=== PATIENT | female | born 1940 | race Caucasian/White ===

== ENCOUNTER 2022-02-15 11:56 | Outpatient (CLI) | payer MEDICARE, OTHER ==
[2022-02-15 14:40] LABS: Hemoglobin 12.2 g/dL (12.0-15.5); Mean Corpuscular HGB CONC 32.9 g/dL (32.0-36.0); Mean Corpuscular Volume 91.2 fl (81.6-98.3); Mean Platelet Volume 11.9 fl (7.4-10.4); Platelet Count 135 10x3/uL (150-450); RBC Distribution Width 13.6 % (11.5-14.5); Red Blood Cell (RBC) Count 4.07 10x6/uL (3.90-5.03); White Blood Cell (WBC) Count 4.9 10x3/uL (3.5-10.5)
[2022-02-15 14:58] LABS: Anion Gap 14 mmol/L (10-20); BUN (Urea Nitrogen) 23 mg/dL (9.8-20.1); Calc. Creatinine Clearance 0 mL/min (70-130); Calcium 9.9 mg/dL (7.8-10.44); Carbon Dioxide 27 mmol/L (23-31); Chloride 106 mmol/L (98-107); Estimated GFR 69; Glucose 88 mg/dL (83-110); Potassium 4.8 mmol/L (3.5-5.1); Sodium 142 mmol/L (136-145)
== END 2022-02-15 11:57 | disposition home or self-care (01) ==
LOC: LABBT 11:56
PROVIDERS: ATTEND Thoracic Surgery (Cardiothoracic Vascular Surgery)
DX: Z01.812 Encounter for preprocedural laboratory examination (principal)
CPT/HCPCS: 80048; 85027

== ENCOUNTER 2022-02-17 06:41 | Inpatient (IN) | payer MEDICARE ==
[2022-02-17 07:53] LABS: SARS-CoV-2 NAA Rapid Test Not Detected (NotDetected)
[2022-02-17] MEDS ORDERED: Clindamycin/D5W 900 mg/50 ml Premix Bag ONE (08:59)
[2022-02-17] MEDS ORDERED: fentaNYL Citrate/PF 100 MCG/2 ML SYRINGE ONE (09:00)
[2022-02-17] MEDS ORDERED: Nitroglycerin 50 MG/250 ML BOT 0 ML ONE (09:01)
[2022-02-17] MEDS ORDERED: SUGAMMADEX SODIUM 200 MG/2 ML VIAL ONE (09:01)
[2022-02-17] MEDS ORDERED: PHENYLEPHRINE-NS 100 MCG/ML 10 ML SYRINGE ONE (09:11)
[2022-02-17] MEDS ORDERED: Phenylephrine 10 MG/ML VIAL ONE (09:12)
[2022-02-17] MEDS ORDERED: Protamine Sulfate 50 MG/5 ML VIAL ONE (09:40)
[2022-02-17] MEDS ORDERED: Heparin 5,000 UNITS/ML VIAL ONE (09:40)
[2022-02-17] MEDS ORDERED: EPINEPHrine 1 MG/ML AMP ONE (09:41)
[2022-02-17] MEDS ORDERED: Bupivacaine PF 0.5% 30 ML VIAL ONE (09:41)
[2022-02-17] MEDS ORDERED: Sodium Chloride 0.9% 100 ML ONE (10:27)
[2022-02-17] MEDS ORDERED: CEFAZOLIN 2 GM VIAL ONE (10:27)
[2022-02-17] MEDS ORDERED: Glycopyrrolate 0.2 MG/ML 5 ML SYRINGE ONE (10:36)
[2022-02-17] MEDS ORDERED: PROPOFOL 200 MG/20 ML VIAL ONE (10:36)
[2022-02-17] MEDS ORDERED: Rocuronium Bromide 10 MG/ML (10ML VIAL) ONE (10:36)
[2022-02-17] MEDS ORDERED: Ondansetron PF 4 MG/2 ML Vial ONE (10:36)
[2022-02-17] MEDS ORDERED: Ondansetron HCl/PF 4 MG/2 ML Vial IVP PRN (11:57)
[2022-02-17] MEDS ORDERED: Promethazine HCl 25 MG/ML VIAL IVPB PRN (11:57)
[2022-02-17] MEDS ORDERED: Promethazine HCl 25 MG/ML VIAL IM PRN (11:57)
[2022-02-17] MEDS ORDERED: Acetaminophen 325 MG TAB PO PRN (12:10)
[2022-02-17] MEDS ORDERED: hydrALAZINE 20 MG/ML VIAL SLOW IVP PRN (12:10)
[2022-02-17] MEDS ORDERED: traMADol HCl 50 MG TAB PO PRN (12:10)
[2022-02-17] MEDS ORDERED: Ondansetron PF 4 MG/2 ML Vial IVP PRN (12:10)
[2022-02-17] MEDS ORDERED: Fentanyl 100 MCG/2 ML VIAL SLOW IVP PRN (12:10)
[2022-02-17] MEDS ORDERED: Nitroglycerin 50 MG/250 ML BOT 250 ML IVPB PRN (12:10)
[2022-02-17] MEDS ORDERED: Phenylephrine 40 MG/NS 250 ML 40 MG in Premix Bag 1 BAG IVPB PRN (12:21)
[2022-02-17] MEDS: Sodium Chloride 0.9% 1,000 ML IV SCH ×2 (14:19→21:45)
[2022-02-17 14:32] VITALS: BMI 24.2
[2022-02-17] MEDS: CEFAZOLIN 2 GM in Sodium Chloride 0.9% 100 ML IVPB SCH (17:31)
[2022-02-17] MEDS ORDERED: Rosuvastatin 10 MG TAB PO SCH (21:00)
[2022-02-18] MEDS: CEFAZOLIN 2 GM in Sodium Chloride 0.9% 100 ML IVPB SCH ×2 (01:06→11:24)
[2022-02-18 07:30] VITALS: TEMP 98.5
[2022-02-18] MEDS ORDERED: Losartan/Hydrochlorothiazide 100 mg/25 mg Tablet PO SCH (09:00)
[2022-02-18] MEDS ORDERED: Clopidogrel Bisulfate 75 MG TAB PO SCH (09:00)
[2022-02-18] MEDS ORDERED: Bisoprolol Fumarate 5 MG TAB PO SCH (09:00)
[2022-02-18] MEDS ORDERED: Aspirin Chewable 81 MG TAB PO SCH (09:00)
[2022-02-18] MEDS: Sodium Chloride 0.9% 1,000 ML IV SCH (11:24)
== END 2022-02-18 11:00 | disposition home or self-care (01) | DRG 36 ==
LOC: SDC 06:41 → CCU 11:54
PROVIDERS: ADMIT Thoracic Surgery (Cardiothoracic Vascular Surgery); ATTEND Thoracic Surgery (Cardiothoracic Vascular Surgery)
PROC: 037J34Z Dilation of Left Common Carotid Artery with Drug-eluting Intraluminal Device, Percutaneous Approach (ICD-10-PCS; principal; 2022-02-17)
DX: I65.22 Occlusion and stenosis of left carotid artery (principal); Z20.822 Contact with and (suspected) exposure to COVID-19; I10 Essential (primary) hypertension; J30.2 Other seasonal allergic rhinitis; E11.9 Type 2 diabetes mellitus without complications; E78.2 Mixed hyperlipidemia; M19.90 Unspecified osteoarthritis, unspecified site; Z90.710 Acquired absence of both cervix and uterus; Z79.82 Long term (current) use of aspirin; Z79.899 Other long term (current) drug therapy
CPT/HCPCS: 76000; 80048; 85027; 94640; C1769; C1876; C1884; J0171; J0690; J1644; J2370; J2405; J2704; J2720; J3490; J7050; J7620; S0020; U0002

== ENCOUNTER 2022-05-19 12:15 | Inpatient (IN) | payer MEDICARE ==
[2022-05-21] MEDS ORDERED: Bupivacaine HCl 0.5%/Epinephrine 1:200,000/PF 30 ml Vial ONE (06:10)
[2022-05-21] MEDS ORDERED: Protamine Sulfate 50 MG/5 ML VIAL ONE (06:10)
[2022-05-21] MEDS ORDERED: Dexamethasone 4 mg/ml Vial ONE (06:10)
[2022-05-21] MEDS ORDERED: Heparin 5,000 UNITS/ML VIAL ONE (06:10)
[2022-05-21] MEDS ORDERED: Sodium Chloride 0.9% 100 ML ONE (06:47)
[2022-05-21] MEDS ORDERED: CEFAZOLIN 2 GM VIAL ONE (06:47)
[2022-05-21] MEDS ORDERED: Lidocaine 1% MPF 2 ML VIAL ONE (06:54)
[2022-05-21 07:03] LABS: SARS-CoV-2 NAA Rapid Test Not Detected (NotDetected)
[2022-05-21] MEDS ORDERED: PROPOFOL 200 MG/20 ML VIAL ONE (07:09)
[2022-05-21] MEDS ORDERED: PHENYLEPHRINE-NS 100 MCG/ML 10 ML SYRINGE ONE (07:09)
[2022-05-21] MEDS ORDERED: Rocuronium Bromide 10 MG/ML (10ML VIAL) ONE (07:09)
[2022-05-21] MEDS ORDERED: ePHEDrine 50 MG/ML VIAL ONE (07:09)
[2022-05-21] MEDS ORDERED: Dexamethasone 20 MG/5 ML VIAL ONE (07:09)
[2022-05-21] MEDS ORDERED: SUGAMMADEX SODIUM 200 MG/2 ML VIAL ONE (08:20)
[2022-05-21] MEDS ORDERED: Phenylephrine 40 MG in Sodium Chloride 0.9% 250 ML 250 ML IVPB PRN (08:33)
[2022-05-21] MEDS ORDERED: Fentanyl 100 MCG/2 ML VIAL SLOW IVP PRN (08:33)
[2022-05-21] MEDS ORDERED: Ondansetron PF 4 MG/2 ML Vial IVP PRN (08:33)
[2022-05-21] MEDS ORDERED: Ipratropium/Albuterol 3 ML NEB NEB PRN (08:33)
[2022-05-21] MEDS ORDERED: traMADol HCl 50 MG TAB PO PRN (08:33)
[2022-05-21] MEDS ORDERED: hydrALAZINE 20 MG/ML VIAL SLOW IVP PRN (08:33)
[2022-05-21] MEDS ORDERED: Nitroglycerin 50 MG/250 ML BOT 250 ML IVPB PRN (08:33)
[2022-05-21] MEDS ORDERED: Acetaminophen 325 MG TAB PO PRN (08:33)
[2022-05-21] MEDS ORDERED: ePHEDrine Sulfate 50 MG/10 ML VIAL ONE (08:42)
[2022-05-21] MEDS: CEFAZOLIN 2 GM in Sodium Chloride 0.9% 100 ML IVPB SCH ×2 (15:46→22:15)
[2022-05-21] MEDS: Sodium Chloride 0.9% 1,000 ML IV SCH (15:50)
[2022-05-21 20:02] VITALS: BMI 23.0
[2022-05-22] MEDS: CEFAZOLIN 2 GM in Sodium Chloride 0.9% 100 ML IVPB SCH (05:13)
[2022-05-22] MEDS: Sodium Chloride 0.9% 1,000 ML IV SCH (05:49)
[2022-05-22 08:16] VITALS: TEMP 98.4
[2022-05-22] MEDS ORDERED: Clopidogrel Bisulfate 75 MG TAB PO SCH (09:00)
[2022-05-22] MEDS ORDERED: Aspirin Chewable 81 MG TAB PO SCH (09:00)
[2022-05-22] MEDS ORDERED: Losartan/Hydrochlorothiazide 100 mg/25 mg Tablet PO SCH (09:00)
[2022-05-22 10:09] VITALS: BP 97/44
[2022-05-22] MEDS ORDERED: Bisoprolol Fumarate 5 MG TAB PO SCH (21:00)
[2022-05-22] MEDS ORDERED: Rosuvastatin 10 MG TAB PO SCH (21:00)
== END 2022-05-22 10:30 | disposition home or self-care (01) | DRG 36 ==
LOC: SURG A 05-21 05:28 → CCU 05-21 13:54
PROVIDERS: ADMIT Thoracic Surgery (Cardiothoracic Vascular Surgery); ATTEND Thoracic Surgery (Cardiothoracic Vascular Surgery)
PROC: 037K3DZ Dilation of Right Internal Carotid Artery with Intraluminal Device, Percutaneous Approach (ICD-10-PCS; principal; 2022-05-21)
DX: I65.21 Occlusion and stenosis of right carotid artery (principal); Z20.822 Contact with and (suspected) exposure to COVID-19; I10 Essential (primary) hypertension; E11.9 Type 2 diabetes mellitus without complications; Z90.710 Acquired absence of both cervix and uterus
CPT/HCPCS: 80048; 85027; 93005; C1725; C1769; C1876; C1884; J1100; J1642; J1644; J2704; J2720; J3490; J7050; U0002

== ENCOUNTER 2022-05-19 12:15 | Outpatient (CLI) | payer MEDICARE ==
[2022-05-19 14:02] LABS: Hemoglobin 11.1 g/dL (12.0-15.5); Mean Corpuscular HGB CONC 32.2 g/dL (32.0-36.0); Mean Corpuscular Hemoglobin 29.4 pg (27.0-33.0); Mean Corpuscular Volume 91.5 fl (81.6-98.3); Platelet Count 207 10x3/uL (150-450); RBC Distribution Width 15.3 % (11.5-14.5); Red Blood Cell (RBC) Count 3.77 10x6/uL (3.90-5.03); White Blood Cell (WBC) Count 4.2 10x3/uL (3.5-10.5)
[2022-05-19 14:26] LABS: Anion Gap 15 mmol/L (10-20); BUN (Urea Nitrogen) 23 mg/dL (9.8-20.1); Calc. Creatinine Clearance 0 mL/min (70-130); Calcium 9.6 mg/dL (7.8-10.44); Carbon Dioxide 28 mmol/L (23-31); Chloride 105 mmol/L (98-107); Estimated GFR 59; Glucose 104 mg/dL (83-110); Potassium 4.5 mmol/L (3.5-5.1); Sodium 143 mmol/L (136-145)
== END 2022-05-19 12:16 | disposition home or self-care (01) ==
LOC: LABBT 12:15
PROVIDERS: ATTEND Thoracic Surgery (Cardiothoracic Vascular Surgery)
DX: Z01.818 Encounter for other preprocedural examination (principal); I65.21 Occlusion and stenosis of right carotid artery
CPT/HCPCS: 80048; 85027; 93005; 93010

== ENCOUNTER 2025-01-28 14:20 | Outpatient (CLI) | payer MEDICARE | END 2025-01-28 14:21 | disposition home or self-care (01) | LOC: BICRAD 14:20 | PROVIDERS: ATTEND Family Medicine | DX: S99.922A Unspecified injury of left foot, initial encounter (principal); R07.89 Other chest pain; M47.815 Spondylosis without myelopathy or radiculopathy, thoracolumbar region; S92.412A Displaced fracture of proximal phalanx of left great toe, initial encounter for closed fracture | CPT/HCPCS: 71110 ==